=== PATIENT | female | born 1955 | race African-American/Black ===

== ENCOUNTER 2019-12-25 06:54 | Inpatient (IN) | payer MEDICARE, OTHER, MEDICAID ==
[~2019-12-25] VITALS: Ht 152.4 cm; Wt 65.5 kg
[2019-12-25] VITALS (17 sets, daily range): BP systolic 111–201; BP diastolic 30–113
[2019-12-25] MEDS ORDERED: EPINEPHRINE 0.1MG/ML (1:10,000) 10ML SYR ONE (07:13)
[2019-12-25] MEDS ORDERED: SODIUM CHLORIDE 0.9% 1,000 ML IV ONE ×2 (07:30)
[2019-12-25 07:53] LABS: BG BASE EXCESS -10.3 mmol/L (-2.0-2.0); BG CARBOXYHEMOGLOBIN 0.2 % (0.5-1.5); BG FRACTION INSPIRED OXYGEN 100; BG HCO3 ACT 18.2 mmol/L (22.0-26.0); BG METHEMOGLOBIN 0.3 % (0.0-1.5); BG OXYGEN SATURATION 69.8 % (92.0-98.5); BG OXYHEMOGLOBIN 69.5 % (94.0-97.0); BG PCO2 50.8 mmHg (35.0-45.0); BG PH 7.172 (7.350-7.450); BG PO2 45.3 mmHg (75.0-100.0); BG SAMPLE SITE RIGHT BRACHIAL; BG TIDAL VOLUME(mL) 500 mL; BG TOTAL HEMOGLOBIN 12.6 g/dL (12.0-18.0); BG VENT MODE VENT - A/C; BG VENT RATE 16 set
[2019-12-25 08:14] LABS: BASOPHILS % 0.3 % (0.0-2.0); LYMPHOCYTES % 45.6 % (20.0-50.0); MEAN CORPUSCULAR HEMOGLOBIN 30.8 pg (28.0-32.0); MEAN CORPUSCULAR VOLUME 92.3 fL (81.0-99.0); MEAN PLATELET VOLUME 8.6 fl (7.4-10.4); MONOCYTES % 2.6 % (2.0-8.0); NEUTROPHILS % 50.5 % (40.0-76.0); PLATELET 91 x1000/uL (130-400); RED BLOOD CELL COUNT 4.23 mill/uL (4.2-5.4); RED CELL DISTRIBUTION WIDTH 18.2 % (11.6-14.6)
[2019-12-25 08:25] LABS: CHLORIDE 109 mEq/L (98-107)
[2019-12-25] MEDS ORDERED: PIPERACILLIN/TAZ 3.375G PREMIX 50 ML IV ONE (09:00)
[2019-12-25] MEDS ORDERED: VANCOMYCIN 1 G PREMIX 200 ML IV ONE (09:00)
[2019-12-25] MEDS ORDERED: LIDOCAINE HCL 1% 20ML VIAL (Pyxis) INJ ONE (09:27)
[2019-12-25 10:48] LABS: CLARITY URINE CLEAR (CLEAR); COLOR URINE YELLOW (YELLOW); KETONES URINE NEGATIVE (NEGATIVE); LEUKOCYTE ESTERASE URINE NEGATIVE (NEGATIVE); NITRITE URINE NEGATIVE (NEGATIVE); OCCULT BLOOD URINE NEGATIVE (NEGATIVE); PH URINE 6.5 (4.5-8.0); PROTEIN URINE 1+ (NEGATIVE); SPECIFIC GRAVITY URINE 1.013 (1.005-1.030)
[2019-12-25] MEDS ORDERED: ONDANSETRON HCL 4MG/2ML INJ IV PRN (13:00)
[2019-12-25] MEDS ORDERED: PIPERACILLIN/TAZ 3.375G PREMIX 50 ML IV SCH (13:00)
[2019-12-25 13:07] LABS: BG BASE EXCESS -1.9 mmol/L (-2.0-2.0); BG CARBOXYHEMOGLOBIN 0.1 % (0.5-1.5); BG DEOXYHEMOGLOBIN 0.5 % (0.0-5.0); BG METHEMOGLOBIN 0.5 % (0.0-1.5); BG OXYGEN SATURATION 99.5 % (92.0-98.5); BG OXYHEMOGLOBIN 98.9 % (94.0-97.0); BG PCO2 31.1 mmHg (35.0-45.0); BG PH 7.448 (7.350-7.450); BG PO2 519.7 mmHg (75.0-100.0); BG SAMPLE SITE RIGHT RADIAL; BG TIDAL VOLUME(mL) 500 mL; BG TOTAL HEMOGLOBIN 14.4 g/dL (12.0-18.0); BG VENT MODE VENT - A/C; BG VENT RATE 16 set
[2019-12-25] MEDS: SODIUM CHLORIDE 0.9% 1,000 ML IV SCH (13:30)
[2019-12-25] MEDS ORDERED: METHYLPREDNISOLONE SOD SUCC 125 MG/2 ML VIAL IV NR (13:30)
[2019-12-25] MEDS ORDERED: HYDRALAZINE 20MG/ML VIAL IV NR (13:45)
[2019-12-25] MEDS ORDERED: ENOXAPARIN 40MG/0.4ML SYR SUBCUT SCH (14:00)
[2019-12-25 15:08] LABS: CREATINE KINASE MB FRACTION 3.9 ng/mL (0.5-3.6)
[2019-12-25] MEDS: IPRATROPIUM/ALBUTEROL 0.5-3(2.5)MG/3ML NEB HHN SCH ×3 (16:30→20:14)
[2019-12-25] MEDS ORDERED: PIPERACILLIN/TAZOBACTAM 3.375 G in DEXT 5% WATER 100 ML IV SCH (17:00)
[2019-12-25] MEDS ORDERED: VANCOMYCIN 750 MG PREMIX 150 ML IV SCH (18:00)
[2019-12-25] MEDS: VANCOMYCIN 750 MG PREMIX 150 ML IV SCH (18:52)
[2019-12-25] MEDS: PIPERACILLIN/TAZOBACTAM 3.375 G in DEXT 5% WATER 100 ML IV SCH ×2 (18:52→23:24)
[2019-12-25] MEDS: HYDRALAZINE 20MG/ML VIAL IV PRN (19:42)
[2019-12-25] MEDS ORDERED: DEXTROSE 50% WATER 50ML SYRINGE IV PRN (20:15)
[2019-12-25] MEDS: METHYLPREDNISOLONE SOD SUCC 40 MG/ML VIAL IV SCH (21:15)
[2019-12-25] MEDS: BLOOD SUGAR DIAGNOSTIC STRIP TEST SCH (21:15)
[2019-12-25] MEDS: INSULIN LISPRO 100 UNITS/ML SUBCUT SCH (21:16)
[2019-12-25] MEDS: CLONIDINE 0.1MG TABLET PO PRN (21:40)
[2019-12-25] MEDS: ACETAMINOPHEN 325MG TABLET PO PRN (21:40)
[2019-12-25] MEDS ORDERED: LEVETIRACETAM 500 MG in SODIUM CHLORIDE 0.9% 100 ML IV SCH (22:15)
[2019-12-25] MEDS ORDERED: LORAZEPAM 2MG/ML CPJ IV PRN (22:15)
[2019-12-25] MEDS ORDERED: LABETALOL 5MG/ML SYR 20 MG/4 ML SYRINGE IV NR (23:00)
[2019-12-25 23:28] LABS: CREATINE KINASE MB FRACTION 4.4 ng/mL (0.5-3.6)
[2019-12-25] MEDS: MORPHINE SULFATE 2 MG/ML CPJ (NOT FOR IM USE) IV PRN (23:42)
[2019-12-25 23:52] LABS: METHADONE URINE SCREEN NEGATIVE (NEGATIVE); OPIATES URINE SCREEN NEGATIVE (NEGATIVE)
[2019-12-25 23:53] LABS: *AMPHETAMINES SCREEN URINE NEGATIVE (NEGATIVE); *BARBITURATES SCREEN URINE NEGATIVE (NEGATIVE); *BENZODIAZEPINES SCREEN URINE NEGATIVE (NEGATIVE); *COCAINE SCREEN URINE NEGATIVE (NEGATIVE); CANNABINOID URINE SCREEN NEGATIVE (NEGATIVE); PHENCYCLIDINE URINE SCREEN NEGATIVE (NEGATIVE)
[2019-12-26] VITALS (90 sets, daily range): BP systolic 100–193; BP diastolic 61–116
[2019-12-26] MEDS: LEVETIRACETAM 500MG PREMIX 100 ML IV SCH ×3 (00:05→20:38)
[2019-12-26] MEDS: NITROGLYCERIN 50MG PREMIX 250 ML IV PRN ×3 (00:05→17:40)
[2019-12-26] MEDS: IPRATROPIUM/ALBUTEROL 0.5-3(2.5)MG/3ML NEB HHN SCH ×6 (00:12→20:19)
[2019-12-26] MEDS: SODIUM CHLORIDE 0.9% 1,000 ML IV SCH ×2 (05:04→23:01)
[2019-12-26] MEDS: VANCOMYCIN 750 MG PREMIX 150 ML IV SCH ×2 (05:04→17:40)
[2019-12-26] MEDS: METHYLPREDNISOLONE SOD SUCC 40 MG/ML VIAL IV SCH (05:04)
[2019-12-26] MEDS: PIPERACILLIN/TAZOBACTAM 3.375 G in DEXT 5% WATER 100 ML IV SCH ×4 (05:04→23:01)
[2019-12-26 05:21] LABS: HEMATOCRIT. 39.2 % (36.0-48.0); HEMOGLOBIN. 13.2 g/dL (12.0-16.0); MEAN CORPUSCULAR HEMOGLOBIN 30.5 pg (28.0-32.0); MEAN CORPUSCULAR VOLUME 90.4 fL (81.0-99.0); PLATELET 146 x1000/uL (130-400); RED BLOOD CELL COUNT 4.33 mill/uL (4.2-5.4); RED CELL DISTRIBUTION WIDTH 17.6 % (11.6-14.6)
[2019-12-26 05:31] LABS: CHLORIDE 106 mEq/L (98-107)
[2019-12-26] MEDS: INSULIN LISPRO 100 UNITS/ML SUBCUT SCH ×5 (06:30→23:02)
[2019-12-26] MEDS: BLOOD SUGAR DIAGNOSTIC STRIP TEST SCH ×5 (06:31→23:02)
[2019-12-26 07:52] LABS: PLATELET ESTIMATE NORMAL
[2019-12-26] MEDS: AMLODIPINE 10MG TABLET PO SCH (08:19)
[2019-12-26] MEDS: PANTOPRAZOLE SODIUM 40 MG/VIAL IV SCH (08:19)
[2019-12-26 08:36] LABS: BG BASE EXCESS -3.7 mmol/L (-2.0-2.0); BG CARBOXYHEMOGLOBIN 0.3 % (0.5-1.5); BG DEOXYHEMOGLOBIN 1.3 % (0.0-5.0); BG FRACTION INSPIRED OXYGEN 50; BG HCO3 ACT 19.2 mmol/L (22.0-26.0); BG METHEMOGLOBIN 0.3 % (0.0-1.5); BG OXYGEN SATURATION 98.7 % (92.0-98.5); BG OXYHEMOGLOBIN 98.1 % (94.0-97.0); BG PCO2 28.9 mmHg (35.0-45.0); BG PO2 140.8 mmHg (75.0-100.0); BG SAMPLE SITE RIGHT RADIAL; BG TIDAL VOLUME(mL) 500 mL; BG TOTAL HEMOGLOBIN 13.4 g/dL (12.0-18.0); BG VENT MODE VENT - A/C; BG VENT RATE 16 set
[2019-12-26] MEDS ORDERED: METOPROLOL TARTRATE 50MG TABLET PO SCH (09:30)
[2019-12-26] MEDS: HYDRALAZINE HCL 50MG TABLET PO SCH ×2 (09:43→20:14)
[2019-12-26] MEDS: ACETAMINOPHEN 325MG TABLET PO PRN ×2 (11:37→20:38)
[2019-12-26] MEDS: METOPROLOL TARTRATE 50MG TABLET PO SCH (20:14)
[2019-12-27] VITALS (100 sets, daily range): BP systolic 86–182; BP diastolic 47–102
[2019-12-27] MEDS: IPRATROPIUM/ALBUTEROL 0.5-3(2.5)MG/3ML NEB HHN SCH ×6 (00:11→21:22)
[2019-12-27 04:36] LABS: HEMATOCRIT. 32.9 % (36.0-48.0); HEMOGLOBIN. 11.2 g/dL (12.0-16.0); MEAN CORPUSCULAR HEMOGLOBIN 30.7 pg (28.0-32.0); MEAN PLATELET VOLUME 8.8 fl (7.4-10.4); PLATELET 130 x1000/uL (130-400); RED BLOOD CELL COUNT 3.66 mill/uL (4.2-5.4)
[2019-12-27 04:39] LABS: CHLORIDE 105 mEq/L (98-107)
[2019-12-27 04:45] LABS: INR 1.1; PROTHROMBIN TIME 11.9 sec (9.6-11.0)
[2019-12-27] MEDS: VANCOMYCIN 750 MG PREMIX 150 ML IV SCH (05:33)
[2019-12-27] MEDS: PIPERACILLIN/TAZOBACTAM 3.375 G in DEXT 5% WATER 100 ML IV SCH ×4 (05:33→23:37)
[2019-12-27] MEDS: BLOOD SUGAR DIAGNOSTIC STRIP TEST SCH ×4 (05:34→23:37)
[2019-12-27] MEDS: INSULIN LISPRO 100 UNITS/ML SUBCUT SCH ×3 (06:23→18:29)
[2019-12-27] MEDS: METOPROLOL TARTRATE 50MG TABLET PO SCH (09:00)
[2019-12-27] MEDS: HYDRALAZINE HCL 50MG TABLET PO SCH ×2 (09:00→20:37)
[2019-12-27] MEDS: AMLODIPINE 10MG TABLET PO SCH (09:00)
[2019-12-27] MEDS: PANTOPRAZOLE SODIUM 40 MG/VIAL IV SCH (09:26)
[2019-12-27] MEDS: LEVETIRACETAM 500MG PREMIX 100 ML IV SCH ×2 (09:26→20:37)
[2019-12-27] MEDS ORDERED: POTASSIUM CHLORIDE INJ 40 MEQ in DEXT 5% WATER 250 ML IV SCH (10:00)
[2019-12-27] MEDS ORDERED: MAGNESIUM 1 G PREMIX 100 ML IV NR (10:30)
[2019-12-27 12:06] LABS: PLATELET ESTIMATE NORMAL
[2019-12-27] MEDS ORDERED: POTASSIUM CHLORIDE 20MEQ TABLET SR PO SCH (12:30)
[2019-12-27] MEDS: MAGNESIUM OXIDE 400MG TABLET PO SCH (12:46)
[2019-12-27] MEDS ORDERED: VANCOMYCIN 1 G PREMIX 200 ML IV SCH (15:00)
[2019-12-27] MEDS: SODIUM CHLORIDE 0.9% 1,000 ML IV SCH (18:27)
[2019-12-27] MEDS: POLYVINYL ALCOHOL OPHTH DROPS 15ML BOTHEYE SCH ×2 (18:27→23:37)
[2019-12-27] MEDS: ACETAMINOPHEN 325MG TABLET PO PRN (18:39)
[2019-12-27] MEDS: CLONIDINE 0.1MG TABLET PO PRN (18:49)
[2019-12-27] MEDS: HYDRALAZINE 20MG/ML VIAL IV PRN (21:09)
[2019-12-27] MEDS ORDERED: POTASSIUM CHLORIDE INJ 40 MEQ in DEXT 5% WATER 250 ML IV NR (23:00)
[2019-12-27] MEDS: METOCLOPRAMIDE HCL 10MG/2ML VIAL IV SCH (23:40)
[2019-12-28] VITALS (60 sets, daily range): BP systolic 90–171; BP diastolic 55–99
[2019-12-28] MEDS: INSULIN LISPRO 100 UNITS/ML SUBCUT SCH ×5 (00:50→21:54)
[2019-12-28] MEDS: IPRATROPIUM/ALBUTEROL 0.5-3(2.5)MG/3ML NEB HHN SCH ×6 (00:57→20:21)
[2019-12-28] MEDS: POLYVINYL ALCOHOL OPHTH DROPS 15ML BOTHEYE SCH ×3 (05:54→17:32)
[2019-12-28] MEDS: BLOOD SUGAR DIAGNOSTIC STRIP TEST SCH ×3 (05:54→17:22)
[2019-12-28] MEDS: PIPERACILLIN/TAZOBACTAM 3.375 G in DEXT 5% WATER 100 ML IV SCH ×3 (05:54→17:32)
[2019-12-28] MEDS: METOCLOPRAMIDE HCL 10MG/2ML VIAL IV SCH ×3 (06:02→17:32)
[2019-12-28 06:06] LABS: BASOPHILS % 0.2 % (0.0-2.0); EOSINOPHILS % 0.5 % (0.0-5.0); HEMATOCRIT. 37.6 % (36.0-48.0); HEMOGLOBIN. 12.7 g/dL (12.0-16.0); LYMPHOCYTES % 11.7 % (20.0-50.0); MEAN CORPUSCULAR HEMOGLOBIN 30.5 pg (28.0-32.0); MEAN CORPUSCULAR VOLUME 90.3 fL (81.0-99.0); MEAN PLATELET VOLUME 9.1 fl (7.4-10.4); MONOCYTES % 7.6 % (2.0-8.0); PLATELET 119 x1000/uL (130-400); RED BLOOD CELL COUNT 4.17 mill/uL (4.2-5.4); RED CELL DISTRIBUTION WIDTH 18.6 % (11.6-14.6)
[2019-12-28 06:15] LABS: CHLORIDE 111 mEq/L (98-107)
[2019-12-28 08:40] LABS: BG BASE EXCESS -1.2 mmol/L (-2.0-2.0); BG CARBOXYHEMOGLOBIN 0.3 % (0.5-1.5); BG DEOXYHEMOGLOBIN 1.8 % (0.0-5.0); BG METHEMOGLOBIN 0.3 % (0.0-1.5); BG OXYGEN SATURATION 98.2 % (92.0-98.5); BG OXYHEMOGLOBIN 97.6 % (94.0-97.0); BG PCO2 24.8 mmHg (35.0-45.0); BG PH 7.525 (7.350-7.450); BG PO2 106.6 mmHg (75.0-100.0); BG SAMPLE SITE RIGHT RADIAL; BG TIDAL VOLUME(mL) 500 mL; BG TOTAL HEMOGLOBIN 13.2 g/dL (12.0-18.0); BG VENT MODE VENT - A/C; BG VENT RATE 16 set
[2019-12-28] MEDS: MAGNESIUM OXIDE 400MG TABLET PO SCH (08:40)
[2019-12-28] MEDS: ENOXAPARIN 40MG/0.4ML SYR SUBCUT SCH (08:41)
[2019-12-28] MEDS: HYDRALAZINE HCL 50MG TABLET PO SCH ×2 (08:41→21:00)
[2019-12-28] MEDS: AMLODIPINE 10MG TABLET PO SCH (08:41)
[2019-12-28] MEDS: SODIUM CHLORIDE 0.9% 1,000 ML IV SCH (08:43)
[2019-12-28] MEDS: PANTOPRAZOLE SODIUM 40 MG/VIAL IV SCH (08:43)
[2019-12-28] MEDS: LEVETIRACETAM 500MG PREMIX 100 ML IV SCH ×2 (08:43→21:26)
[2019-12-28] MEDS ORDERED: NOREPINEPHRINE 32 MG in DEXT 5% WATER 468 ML IV PRN (13:30)
[2019-12-29] VITALS (56 sets, daily range): BP systolic 90–127; BP diastolic 46–76
[2019-12-29] MEDS: IPRATROPIUM/ALBUTEROL 0.5-3(2.5)MG/3ML NEB HHN SCH ×6 (00:10→20:23)
[2019-12-29] MEDS: METOCLOPRAMIDE HCL 10MG/2ML VIAL IV SCH ×4 (00:27→18:00)
[2019-12-29] MEDS: PIPERACILLIN/TAZOBACTAM 3.375 G in DEXT 5% WATER 100 ML IV SCH ×4 (00:28→19:03)
[2019-12-29] MEDS: SODIUM CHLORIDE 0.9% 1,000 ML IV SCH ×2 (00:28→17:30)
[2019-12-29] MEDS: POLYVINYL ALCOHOL OPHTH DROPS 15ML BOTHEYE SCH ×4 (00:28→18:00)
[2019-12-29] MEDS: BLOOD SUGAR DIAGNOSTIC STRIP TEST SCH ×4 (00:37→18:00)
[2019-12-29 01:10] LABS: ETHANOL BLOOD < 10 mg/dL
[2019-12-29 01:15] LABS: T4 FREE 1.03 ng/dL (0.76-1.46)
[2019-12-29 01:27] LABS: FOLIC ACID (FOLATE) SERUM 14.6 ng/mL (>5.38)
[2019-12-29 06:49] LABS: BASOPHILS % 0.4 % (0.0-2.0); EOSINOPHILS % 0.5 % (0.0-5.0); HEMATOCRIT. 36.5 % (36.0-48.0); HEMOGLOBIN. 12.4 g/dL (12.0-16.0); LYMPHOCYTES % 15.8 % (20.0-50.0); MEAN CORPUSCULAR HEMOGLOBIN 30.7 pg (28.0-32.0); MEAN CORPUSCULAR VOLUME 90.7 fL (81.0-99.0); MONOCYTES % 10.4 % (2.0-8.0); NEUTROPHILS % 72.9 % (40.0-76.0); RED BLOOD CELL COUNT 4.03 mill/uL (4.2-5.4); RED CELL DISTRIBUTION WIDTH 19.3 % (11.6-14.6)
[2019-12-29] MEDS: INSULIN LISPRO 100 UNITS/ML SUBCUT SCH ×3 (07:09→18:35)
[2019-12-29 07:21] LABS: CHLORIDE 113 mEq/L (98-107)
[2019-12-29 08:49] LABS: MEAN PLATELET VOLUME 9.2 fl (7.4-10.4); PLATELET 87 x1000/uL (130-400)
[2019-12-29] MEDS: HYDRALAZINE HCL 50MG TABLET PO SCH ×3 (09:00→21:00)
[2019-12-29] MEDS: MAGNESIUM OXIDE 400MG TABLET PO SCH (09:12)
[2019-12-29] MEDS: AMLODIPINE 10MG TABLET PO SCH (09:13)
[2019-12-29] MEDS: LEVETIRACETAM 500MG PREMIX 100 ML IV SCH ×2 (09:14→21:21)
[2019-12-29] MEDS: ENOXAPARIN 40MG/0.4ML SYR SUBCUT SCH (09:14)
[2019-12-29] MEDS: PANTOPRAZOLE SODIUM 40 MG/VIAL IV SCH (09:14)
[2019-12-30] VITALS (26 sets, daily range): BP systolic 83–234; BP diastolic 47–121
[2019-12-30] MEDS: IPRATROPIUM/ALBUTEROL 0.5-3(2.5)MG/3ML NEB HHN SCH ×3 (00:24→08:59)
[2019-12-30] MEDS: INSULIN LISPRO 100 UNITS/ML SUBCUT SCH ×2 (01:11→06:09)
[2019-12-30] MEDS: PIPERACILLIN/TAZOBACTAM 3.375 G in DEXT 5% WATER 100 ML IV SCH ×2 (01:11→06:08)
[2019-12-30] MEDS: HYDRALAZINE 20MG/ML VIAL IV PRN (02:46)
[2019-12-30] MEDS: MORPHINE SULFATE 2 MG/ML CPJ (NOT FOR IM USE) IV PRN (04:30)
[2019-12-30] MEDS: BLOOD SUGAR DIAGNOSTIC STRIP TEST SCH ×2 (05:57)
[2019-12-30] MEDS: POLYVINYL ALCOHOL OPHTH DROPS 15ML BOTHEYE SCH ×2 (06:07)
[2019-12-30] MEDS: METOCLOPRAMIDE HCL 10MG/2ML VIAL IV SCH ×2 (06:08)
[2019-12-30] MEDS: PANTOPRAZOLE SODIUM 40 MG/VIAL IV SCH (08:49)
[2019-12-30] MEDS: HYDRALAZINE HCL 50MG TABLET PO SCH (08:50)
[2019-12-30] MEDS: MAGNESIUM OXIDE 400MG TABLET PO SCH (08:50)
[2019-12-30] MEDS: AMLODIPINE 10MG TABLET PO SCH (08:50)
[2019-12-30] MEDS: LEVETIRACETAM 500MG PREMIX 100 ML IV SCH (08:50)
[2019-12-30] MEDS ORDERED: LORAZEPAM 2MG/ML CPJ IV PRN (10:30)
[2019-12-30] MEDS ORDERED: MORPHINE SULFATE 250 MG in DEXT 5% WATER 240 ML IV PRN (11:00)
[2019-12-30] MEDS ORDERED: MORPHINE SULFATE 250 MG in DEXT 5% WATER 225 ML IV PRN (11:21)
[2020-01-02] MEDS ORDERED: SCOPOLAMINE HYDROBROMIDE PATCH 72HR TD SCH (09:00)
== END 2019-12-30 15:30 | disposition expired | DRG 207 ==
LOC: ER 06:54 → EDBD 06:54 → EDBEDREQ 09:47 → EDBEDREQSVC 09:47 → CVICU 09:56 → ENRESERV 14:47
PROVIDERS: ADMIT Internal Medicine; ATTEND Internal Medicine
PROC: 5A1955Z Respiratory Ventilation, Greater than 96 Consecutive Hours (ICD-10-PCS; principal; 2019-12-25)
PROC: 5A12012 Performance of Cardiac Output, Single, Manual (ICD-10-PCS; 2019-12-25)
PROC: 02HV33Z Insertion of Infusion Device into Superior Vena Cava, Percutaneous Approach (ICD-10-PCS; 2019-12-25)
PROC: B548ZZA Ultrasonography of Superior Vena Cava, Guidance (ICD-10-PCS; 2019-12-25)
PROC: 0B21XFZ Change Tracheostomy Device in Trachea, External Approach (ICD-10-PCS; 2019-12-25)
PROC: 4A10X4Z Monitoring of Central Nervous Electrical Activity, External Approach (ICD-10-PCS; 2019-12-29)
DX: J95.03 Malfunction of tracheostomy stoma (principal); A41.9 Sepsis, unspecified organism; E43 Unspecified severe protein-calorie malnutrition; J69.0 Pneumonitis due to inhalation of food and vomit; G92 Toxic encephalopathy; J96.21 Acute and chronic respiratory failure with hypoxia; I63.9 Cerebral infarction, unspecified; G93.1 Anoxic brain damage, not elsewhere classified; J44.1 Chronic obstructive pulmonary disease with (acute) exacerbation; J44.0 Chronic obstructive pulmonary disease with (acute) lower respiratory infection; E87.2 Acidosis; I46.9 Cardiac arrest, cause unspecified; E87.8 Other disorders of electrolyte and fluid balance, not elsewhere classified; E11.9 Type 2 diabetes mellitus without complications; I48.91 Unspecified atrial fibrillation; I10 Essential (primary) hypertension; Z86.73 Personal history of transient ischemic attack (TIA), and cerebral infarction without residual deficits; Z68.28 Body mass index [BMI] 28.0-28.9, adult; Z87.891 Personal history of nicotine dependence; Y92.009 Unspecified place in unspecified non-institutional (private) residence as the place of occurrence of the external cause
CPT/HCPCS: 36415; 36600; 70551; 71045; 76937; 80048; 80053; 80202; 80305; 80320; 81003; 82140; 82375; 82550; 82553; 82607; 82746; 82805; 82962; 83036; 83605; 83735; 84132; 84439; 84443; 84481; 84484; 85025; 87070; 93005; 93970; 94002; 94003; 94640; 99291; C1725; C9113; J0360; J1650; J1815; J1953; J2060; J2270; J2543; J2765; J2920; J2930; J3370; J3475; J3480; J3490; J7030; J7060; G0480